=== PATIENT | female | born 1970 | race Caucasian/White ===

== ENCOUNTER 2023-10-03 14:33 | Emergency (ER) | payer BC ==
[2023-10-03 14:45] VITALS: BP 141/88; PULSE 80; RESP 16; TEMP 98.2; BMI 22.4
== END 2023-10-03 16:29 | disposition home or self-care (01) ==
LOC: JER 14:33
DX: I10 Essential (primary) hypertension (principal); R00.2 Palpitations; E78.5 Hyperlipidemia, unspecified
CPT/HCPCS: 93005; 93010; 99283-25